=== PATIENT | male | born 1970 | race Caucasian/White ===

== ENCOUNTER 2016-11-06 20:15 | Emergency (ER) | payer SELFPAY ==
--- NOTE | 2016-11-06 23:13 | ER Document Report ---
ED General - General Chief Complaint: Eye Problem Stated Complaint: UNABLE TO SEE OUT OF RIGHT EYE Time Seen by Provider: 11/06/16 22:51 Notes: Patient is a 46-year-old male who presents with complaint of loss of vision in his right eye. Patient says last night he noticed that he was seen floater in his eye. He says he went to bed and when he woke up the floater had increased in size and as the day went on it became larger. The black spot no covers almost his entire vision in the right eye. He says the area around the black spot is just blurry. Denies eye pain but says that his eye feels strained almost as if he has been reading a book for a long time. He denies trauma or injuries. He wears glasses. He does not wear contact lenses. He denies being on any medications. Has no medical problems and is otherwise healthy. Denies history of previous eye surgery. TRAVEL OUTSIDE OF THE [place] IN LAST 30 DAYS: No - Related Data Allergies/Adverse Reactions: No Known Allergies Allergy (Unverified 11/06/16 20:21) Past Medical History - Social History Smoking Status: Unknown if Ever Smoked Frequency of alcohol use: None Drug Abuse: None Family History: Reviewed & Not Pertinent Patient has suicidal ideation: No Patient has homicidal ideation: No Renal/ Medical History: Denies: Hx Peritoneal Dialysis Review of Systems - Review of Systems Notes: My Normal Review Basic REVIEW OF SYSTEMS: CONSTITUTIONAL : Denies fever, chills, or sweats. Denies recent illness. EENT: Visual loss in right eye. NEUROLOGICAL: Denies altered mental status or loss of consciousness. Denies headache. Denies weakness or paralysis or loss of use of either side. Denies problems with gait or speech. Denies sensory or motor loss. ALL OTHER SYSTEMS REVIEWED AND NEGATIVE. Physical Exam - Vital signs Vitals: Temp Pulse Resp BP Pulse Ox 97.7 F 63 16 140/78 H 98 11/06/16 20:16 11/06/16 20:16 11/06/16 20:16 11/06/16 20:16 11/06/16 20:16 - Notes Notes: General Appearance: Well nourished, alert, cooperative, no acute distress, no obvious discomfort. well Appearing. Vitals: reviewed, See vital signs table. Head: no swelling or tenderness to the head Eyes: PERRL, EOMI, Conjuctiva clear. No hyphema. Patient's right eye shows a retinal detachment on bedside ultrasound performed by me. Skin: warm, dry, appropriate color, no rash Neuro: speech clear, oriented x 3, normal affect, responds appropriately to questions. Cranial nerves II through XII are intact. Distal sensation intact. Patient moves all extremities without difficulty. No focal neurologic deficits on exam with exception of the vision loss in his right eye. Course - Vital Signs Vital signs: Temp Pulse Resp BP Pulse Ox 98.4 F 66 18 131/79 H 94 11/06/16 23:21 11/06/16 23:21 11/06/16 23:21 11/06/16 23:21 11/06/16 23:21 - Transfer of Care Notes: 11/07/16 05:31 Patient has history consistent with that of a retinal detachment. I therefore performed a bedside ultrasound of the right eye which shows that he does indeed have retinal detachment. I did speak with our health advisor control inspector, Dr. Ferguson, who requested the patient come to his office at 8 AM in the morning and he would evaluate him and refer him to a retinal specialist. Patient agrees with plan and will be discharged home. 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 Dictation of this chart was performed using voice recognition software; therefore, there may be some unintended grammatical errors. Discharge - Discharge Clinical Impression: Retinal detachment Qualifiers: Laterality: right Qualified Code(s): H33.21 - Serous retinal detachment, right eye Condition: Good Disposition: HOME, SELF-CARE Additional Instructions: You have a retinal detachment of the right eye. This needs to be repaired by a retinal specialist. Please follow up with Dr. Ferguson, ophthamologist, at 8am tomorrow (Saturday). If you any further problems please feel free to return to the ER at any time for reevaluation. Please try to avoid driving as your depth perception will be affected. Dr. Ferguson's office is at [address] in [place]. Forms: Return to Work Referrals: CLEMENTINE FERGUSON MD [ACTIVE STAFF] - Follow up tomorrow
[2016-11-06 23:26] VITALS: BP 131/79
== END 2016-11-06 23:26 | disposition home or self-care (01) ==
LOC: ER 20:15
DX: H33.21 Serous retinal detachment, right eye (principal)
CPT/HCPCS: 99283